=== PATIENT | male | born 1935 | race Hispanic/Latino ===

== ENCOUNTER 2016-09-21 11:22 | Day surgery (SDC) | payer MEDICARE ==
[~2016-09-21 11:22] MED LIST: IOPIDINE ONE; IOPIDINE OS ONE; MYDRIACYL ONE; MYDRIACYL OS ONE; NEOFRIN ONE; NEOFRIN OS ONE
[2016-09-21] MEDS ORDERED: NEOFRIN OS ONE (11:40)
[2016-09-21] MEDS ORDERED: IOPIDINE OS ONE (11:40)
[2016-09-21] MEDS ORDERED: MYDRIACYL OS ONE (11:40)
[2016-09-21 11:58] VITALS: BP 126/78
== END 2016-09-21 12:22 | disposition home health service (06) ==
LOC: OR 11:22
PROVIDERS: ATTEND Specialist
DX: H26.492 Other secondary cataract, left eye (principal)